=== PATIENT | female | born 1945 | race Caucasian/White ===

== ENCOUNTER 2020-06-05 12:09 | Emergency (ER) | payer MEDICARE ==
[2020-06-05] MEDS ORDERED: Aspirin Chewable 81 MG TAB ONE (12:50)
--- NOTE | 2020-06-06 07:24 | CT ---
CT OF THE BRAIN WITHOUT CONTRAST: Date: 06/05/2020 The ventricles are normal in size for age and show no shift. No intracranial mass, bleeding, or signs of acute stroke found. The skull is normal in appearance. The visible paranasal sinuses and mastoid air cells are clear. IMPRESSION: No acute intracranial findings. Preliminary report called to Dr. Torres at 1244 hours on 06/05/2020. CODE CR. POS: HOME
== END 2020-06-05 13:27 | disposition home or self-care (01) ==
LOC: BURERS 12:09
DX: F43.22 Adjustment disorder with anxiety (principal); G45.9 Transient cerebral ischemic attack, unspecified; E78.5 Hyperlipidemia, unspecified; Z87.891 Personal history of nicotine dependence; Z79.899 Other long term (current) drug therapy
CPT/HCPCS: 70450

== ENCOUNTER 2021-05-16 10:29 | Emergency (ER) | payer MEDICARE ==
[~2021-05-16 10:29] MED LIST: Iopamidol 370 76% 100 ML VIAL ONE
[2021-05-16 10:55] LABS: #Basophils 0.1 thou/uL (0.0-0.2); #Eosinphils 0.1 thou/uL (0.0-0.7); #Lymphocytes 2.9 thou/uL (1.20-3.40); #Monocytes 0.6 thou/uL (0.11-0.59); #Neutrophils 3.7 thou/uL (1.40-6.50); %Eosinophils 1.3 % (0.0-10.0); %Lymphocytes 39.6 % (21.0-51.0); %Monocytes 8.1 % (0.0-10.0); %Neutrophils 50.1 % (42.0-75.0); Hemoglobin 15.7 g/dL (12.0-16.0); Mean Corpuscular HGB CONC 32.8 g/dL (32.0-36.0); Mean Corpuscular Hemoglobin 28.2 pg (27.0-31.0); Mean Platelet Volume 8.5 fL (7.4-10.4); Platelet Count 237 thou/uL (130-400); RBC Distribution Width 11.5 % (11.5-14.5); Red Blood Cell (RBC) Count 5.57 mill/uL (4.20-5.40); White Blood Cell (WBC) Count 7.4 thou/uL (4.8-10.8)
[2021-05-16 11:00] LABS: Prothrombin Time 13.5 sec (12.0-14.7)
[2021-05-16 11:09] LABS: ALT (SGPT) 13 U/L (8-55); AST (SGOT) 19 U/L (5-34); Albumin 4.6 g/dL (3.4-4.8); Alkaline Phosphatase 66 U/L (40-110); Anion Gap 16 mmol/L (10-20); BUN (Urea Nitrogen) 12 mg/dL (9.8-20.1); Bilirubin, Total 0.9 mg/dL (0.2-1.2); Calc. Creatinine Clearance 0 mL/min (70-130); Calcium 9.7 mg/dL (7.8-10.44); Carbon Dioxide 24 mmol/L (23-31); Chloride 106 mmol/L (98-107); Globulin 2.8 g/dL (2.4-3.5); Glucose 113 mg/dL (83-110); Potassium 4.3 mmol/L (3.5-5.1); Protein, Total 7.4 g/dL (5.8-8.1); Sodium 142 mmol/L (136-145)
[2021-05-16 11:38] LABS: Bilirubin Negative (Negative); Blood, Urine Negative (Negative); Clarity Clear (Clear); Glucose, Urine (Dipstick) Negative (Negative); Ketone, Urine Negative (Negative); Leukocyte Trace (Negative); Nitrite Negative (Negative); Protein, Urine (Dipstick) Negative (Neg-Trace); Urobilinogen 0.2 mg/dL (Less than 2)
[2021-05-16] MEDS ORDERED: Meclizine HCl 25 MG TAB ONE (11:40)
[2021-05-16] MEDS ORDERED: Aspirin Chewable 81 MG TAB ONE (11:40)
[2021-05-16 11:43] LABS: Bacteria/HPF 1+ HPF (None Seen); RBC/HPF 0-3 HPF (0-3); Squamous Epithelial 0-3 HPF (0-3); WBC/HPF 0-3 HPF (0-3)
== END 2021-05-16 14:38 | disposition short-term general hospital (02) ==
LOC: BURERS 10:29
DX: R42 Dizziness and giddiness (principal); E78.5 Hyperlipidemia, unspecified; Z87.891 Personal history of nicotine dependence
CPT/HCPCS: 36416; 70450; 70496; 70498; 80053; 81003; 81015; 84484; 85025; 85610; 93005; Q9967